=== PATIENT | male | born 1965 | race Caucasian/White ===

== ENCOUNTER 2018-06-30 17:53 | Emergency (ER) | payer MEDICAID ==
[~2018-06-30] VITALS: Ht 175.3 cm; Wt 98.9 kg
[2018-06-30 18:22] VITALS: Ht 175.3 cm; Wt 98.9 kg
[2018-06-30 22:20] VITALS: BP 134/95
== END 2018-06-30 22:21 | disposition home or self-care (01) ==
LOC: ED 17:53
DX: S16.1XXA Strain of muscle, fascia and tendon at neck level, initial encounter (principal); E11.9 Type 2 diabetes mellitus without complications; F32.9 Major depressive disorder, single episode, unspecified; V43.52XA Car driver injured in collision with other type car in traffic accident, initial encounter; Y93.I9 Activity, other involving external motion; Y92.488 Other paved roadways as the place of occurrence of the external cause; Y99.8 Other external cause status

== ENCOUNTER 2018-08-23 17:13 | Emergency (ER) | payer MEDICAID ==
[~2018-08-23] VITALS: Ht 175.3 cm; Wt 102.5 kg
[2018-08-23 17:19] VITALS: Ht 175.3 cm; Wt 102.5 kg
[2018-08-23 18:32] VITALS: BP 142/91
== END 2018-08-23 18:32 | disposition home or self-care (01) ==
LOC: ED 17:13
DX: E11.9 Type 2 diabetes mellitus without complications (principal); F32.9 Major depressive disorder, single episode, unspecified; Z76.0 Encounter for issue of repeat prescription
CPT/HCPCS: 82962

== ENCOUNTER 2018-08-28 16:05 | Emergency (ER) | payer MEDICAID ==
[~2018-08-28] VITALS: Ht 172.7 cm; Wt 102.5 kg
[2018-08-28 16:13] VITALS: BP 146/101; Ht 172.7 cm; Wt 102.5 kg
== END 2018-08-28 16:44 | disposition home or self-care (01) ==
LOC: ED 16:05
DX: E11.9 Type 2 diabetes mellitus without complications (principal); F32.9 Major depressive disorder, single episode, unspecified; Z76.0 Encounter for issue of repeat prescription
CPT/HCPCS: 82962